=== PATIENT | female | born 2000 | race Two or more races ===

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

== ENCOUNTER 2019-04-04 20:16 | Emergency (ER) | payer MEDICAID ==
[2019-04-04 20:57] VITALS: BP 141/73
== END 2019-04-05 00:30 | disposition left against medical advice (07) ==
LOC: ER 20:16
DX: Z53.21 Procedure and treatment not carried out due to patient leaving prior to being seen by health care provider (principal); R11.0 Nausea

== ENCOUNTER 2020-10-01 17:07 | Emergency (ER) | payer MEDICAID ==
--- NOTE | 2020-10-01 17:37 | ER Document Report ---
ED Medical Screen (RME) - General Chief Complaint: Vaginal Bleeding Stated Complaint: VAGINAL BLEEDING,ABDOMINAL PAIN Time Seen by Provider: 10/01/20 17:32 Primary Care Provider: CHEYENNE CANSECO CNM [Primary Care Provider] - Follow up as needed Notes: HPI: 20-year-old morbidly obese female presenting for vaginal bleeding and pelvic pain in the setting of . Patient states she had vaginal bleeding where she soaked through her panties approximately half an hour ago. She believes she is approximately 16 weeks by dates. Has not yet seen [facility] [employer] for this . Has a history of ovarian cyst as well. PHYSICAL EXAMINATION: Limited exam in triage process. She has tenderness across the pelvis and suprapubic region on palpation I have greeted and performed a rapid initial assessment of this patient. A comprehensive ED assessment and evaluation of the patient, analysis of test results and completion of medical decision making process will be conducted by an additional ED providers. Please note that clinical decision making for this patient was made during the 2019 pandemic of novel coronavirus which caused a significant strain on the healthcare system including at this particular [facility]. Criteria for admission discharge and level of care decisions as well as treatment decisions have necessarily changed TRAVEL OUTSIDE OF THE [place] IN LAST 30 DAYS: No - Related Data Allergies/Adverse Reactions: Penicillins Allergy (Verified 10/01/20 17:28) Past Medical History Pulmonary Medical History: Denies: Hx Asthma Endocrine Medical History: Denies: Hx Diabetes Mellitus Type 1 Renal/ Medical History: Denies: Hx Peritoneal Dialysis - Immunizations Immunizations up to date: Yes Hx Diphtheria, Pertussis, Tetanus Vaccination: Yes Physical Exam - Vital signs Vitals: Temp Pulse Resp BP Pulse Ox 98.5 F 94 20 140/79 H 99 10/01/20 17:21 10/01/20 17:21 10/01/20 17:21 10/01/20 17:21 10/01/20 17:21 Course - Vital Signs Vital signs: Temp Pulse Resp BP Pulse Ox 98.5 F 94 20 140/79 H 99 10/01/20 17:21 10/01/20 17:21 10/01/20 17:21 10/01/20 17:21 10/01/20 17:21 Doctor's Discharge - Discharge Referrals: CHEYENNE CANSECO CNM [Primary Care Provider] - Follow up as needed
[2020-10-01 18:16] LABS: ABSOLUTE LYMPHOCYTES (AUTO) 1.6 10^3/uL (0.5-4.7); ABSOLUTE MONOCYTES (AUTO) 0.5 10^3/uL (0.1-1.4); ABSOLUTE NEUT (AUTO) 6.2 10^3/uL (1.7-8.2); BASOPHILS % (AUTO) 0.1 % (0-2); EOSINOPHILS % (AUTO) 0.5 % (0-6); HEMATOCRIT 33.4 % (36.0-47.0); LYMPHOCYTES % (AUTO) 18.7 % (13-45); MEAN CORPUSCULAR HGB CONC 32.9 g/dL (32.0-36.0); MEAN CORPUSCULAR VOLUME 79 fl (80-97); MONOCYTES % (AUTO) 6.2 % (3-13); PLATELET COUNT 273 10^3/uL (150-450); RED BLOOD COUNT 4.24 10^6/uL (3.72-5.28); RED CELL DISTRIBUTION WIDTH 15.6 % (11.5-14.0); SEGMENTED NEUTROPHILS % (AUTO) 74.5 % (42-78); TOTAL CELLS COUNTED % (AUTO) 100 %; WHITE BLOOD COUNT 8.3 10^3/uL (4.0-10.5)
[2020-10-01 18:20] LABS: ALBUMIN 3.5 g/dL (3.5-5.0); ALKALINE PHOSPHATASE 74 U/L (38-126); ANION GAP 7 (5-19); ASPARTATE AMINO TRANSFERASE 21 U/L (14-36); BILIRUBIN,DIRECT 0.1 mg/dL (0.0-0.4); BILIRUBIN,TOTAL 0.4 mg/dL (0.2-1.3); BLOOD UREA NITROGEN 5 mg/dL (7-20); CALCIUM 9.7 mg/dL (8.4-10.2); CARBON DIOXIDE 24 mmol/L (22-30); CHLORIDE 106 mmol/L (98-107); GLUCOSE 90 mg/dL (75-110); POTASSIUM 4.3 mmol/L (3.6-5.0); TOTAL PROTEIN 6.8 g/dL (6.3-8.2)
[2020-10-01 18:29] LABS: APPEARANCE,URINE CLOUDY; BILIRUBIN,URINE NEGATIVE (NEGATIVE); COLOR,URINE YELLOW; GLUCOSE, URINE NEGATIVE (NEGATIVE); KETONES,URINE NEGATIVE (NEGATIVE); LEUKOCYTE ESTERASE,URINE TRACE (NEGATIVE); NITRITE,URINE NEGATIVE (NEGATIVE); PROTEIN,URINE NEGATIVE (NEGATIVE); UROBILINOGEN,URINE NEGATIVE mg/dL (<2.0)
--- NOTE | 2020-10-01 19:19 | RADIOLOGY REPORT (SQ) ---
EXAM DESCRIPTION: U/S OB 14+ TA/1 GEST W/DOPPLER IMAGES COMPLETED DATE/TIME: 10/01/2020 7:04 pm REASON FOR STUDY: vag bleed preg COMPARISON: None. TECHNIQUE: Static and Dynamic grayscale imaging performed of gravid uterus using transabdominal appr oach. Additional selected color Doppler and spectral images recorded. All stored on PACS. LIMITATIONS: None. FINDINGS: FETUSES SEEN:1 EGA: 15 weeks 5 days Calculated using BPD,FL,HC,AC documented on images. No discrepancy with clinica l dates. SUNSHINE: 03/20/2021 EFW: Not applicable grams PERCENTILE: Not applicable. Fetus less than or equal to 20 weeks gestation. WILIAM: L BUSINESS TRAVEL CONSULTANT 4 x 4 PLACENTA: Posterior fundal PRESENTATION: Variable. ANATOMY: HEART RATE: 140 beats per minute. MATERNAL ADNEXA: Maternal ovaries not visualized. CERVICAL LENGTH: 3 cm Closed. OTHER: No other significant finding. IMPRESSION: LIVING INTRAUTERINE . ESTIMATED GESTATIONAL AGE 15 weeks 5 days NO VISUALIZED ANOMALIES. Ovaries not identified. Trimester of : Second trimester - 13 weeks 1 day to 27 weeks 6 days. TECHNICAL DOCUMENTATION: JOB ID: [id number] [employer]- All Rights Reserved Reading location - IP/workstation name: [email or web address]
[2020-10-01 23:19] VITALS: BP 141/73
== END 2020-10-02 00:10 | disposition left against medical advice (07) ==
LOC: ER 17:07
DX: O20.9 Hemorrhage in early pregnancy, unspecified (principal); N93.8 Other specified abnormal uterine and vaginal bleeding; R10.2 Pelvic and perineal pain; Z3A.16 16 weeks gestation of pregnancy
CPT/HCPCS: 36415; 76805; 80053; 81001; 83690; 84702; 85025; 86900; 86901; 93976; 99281